=== PATIENT | female | born 2000 | race American Indian/Alaskan Native ===

== ENCOUNTER 2021-12-13 11:45 | Emergency (ER) | payer SELFPAY ==
--- NOTE | 2021-12-13 12:57 | Ultrasound Report ---
EARLY OBSTETRICAL ULTRASOUND INDICATION: vaginal bleeding COMPARISON: None pertinent available TECHNIQUE: Endovaginal FINDINGS: Uterus measures 8.3 x 4.3 x 4.0 cm. Endometrial stripe measures 13 mm. In the body of the u terus what appears to be a small gestational sac is seen with a double wall sign. Slight internal ech oes are noted but no defined pole or yolk sac are seen. Cardiac activity was not detected. By s ac size this would correlate to 5 weeks 1 day which is mildly less than the clinical estimate of 6 we eks 3 days. In the cervical canal mobile debris is seen which presumably represents blood. Right ovary shows a minimally complex 11 mm cyst. Left ovary shows minimal follicular-type cysts. No adnexal masses are seen. No free fluid is noted. IMPRESSION: Abnormal appearing small intrauterine gestational sac without confirmation of viability. I suspect this is a spontaneous in progress. Follow-up is needed. Signer Name: Raza Webber MD Signed: 12/13/2021 12:53 PM Workstation Name: [email or web address]
--- NOTE | 2021-12-13 13:35 | Emergency Department Report ---
Blank Doc - Documentation Documentation: 22-year-old female that presents with abnormal vaginal bleeding. Patient stated she is about 5 to 6 weeks . Still has some pelvic cramping. 1- This is a initial triage assessment/medical screening only. Full assessment and work-up will be completed once the patient is in proper hospital gown, ED bed and in a private room setting. This initial assessment/diagnostic orders/clinical plan/ treatment(s) is/are subject to change based on pt's health status, clinical progression and re-assessment by fellow clinical providers in the ED. Further treatment and workup at subsequent clinical providers discretion. Patient/guardians urged not to elope from ED as their condition may be serious if not clinically assessed and managed. 2-labs 3-UA 4-US The patient was evaluated in the emergency department for symptoms described in the history of present illness. He/she was evaluated in the context of the global COVID-19 pandemic, which necessitated consideration that the patient might be at risk for infection with the virus that causes COVID-19. Institutional protocols and algorithms that pertain to the evaluation of patients at risk for COVID-19 are in a state of rapid change based on information released by regulatory bodies including the CDC and federal and state organizations. These policies and algorithms were followed during the patient's care in the emergency department. Please note that these policies, procedures and recommendations changed on a rapid basis.
[2021-12-13 14:10] LABS: Basophils % (Auto) 0.4 % (0.0-1.8); Hematocrit 38.2 % (30.3-42.9); Hemoglobin 13.1 gm/dl (10.1-14.3); Lymphocytes # (Auto) 1.1 K/mm3 (1.2-5.4); Lymphocytes % (Auto) 22.3 % (13.4-35.0); Mean Corpuscular HGB Conc 34 % (30-34); Mean Corpuscular Volume 96 fl (79-97); Monocytes # (Auto) 0.6 K/mm3 (0.0-0.8); Monocytes % (Auto) 12.2 % (0.0-7.3); Platelet Count 206 K/mm3 (140-440); Red Blood Count 3.98 M/mm3 (3.65-5.03); Red Cell Distribution Width 12.9 % (13.2-15.2)
[2021-12-13 14:22] LABS: INR 1.08 (0.87-1.13)
[2021-12-13 14:23] LABS: Partial Thromboplastin Time 28.3 Sec. (24.2-36.6)
[2021-12-13] MEDS ORDERED: METOCLOPRAMIDE 10 MG/2 ML INJ IV ONE (15:40)
[2021-12-13] MEDS ORDERED: MORPHINE 2 MG/1 ML INJ IV ONE (15:40)
[2021-12-13] MEDS ORDERED: diphenhydrAMINE 50 MG/ML VIAL IV ONE (15:40)
[2021-12-13] MEDS ORDERED: FAMOTIDINE 20 MG/2 ML INJ IV ONE (15:40)
[2021-12-13 19:21] LABS: Bacteria,Urine 1+ /HPF (Negative); Mucus,Urine 2+ /HPF
--- NOTE | 2021-12-13 19:27 | Emergency Department Report ---
ED Female HPI - General Chief complaint: Vaginal Bleeding Stated complaint: POSSIBLE MISCARRIAGE 6 WEEKS Time Seen by Provider: 12/13/21 11:56 Source: patient Mode of arrival: Ambulatory Limitations: No Limitations - History of Present Illness Initial comments: Patient is a A0 21-year-old -[place] female with no past medical history who is approximately 6 weeks gestation presents to the ED with complaint of acute onset persistent suprapubic pain, nausea, vomiting and vaginal bleeding for the last 2 days. Patient states that the pain is constant and persistent and that the bleeding has been persistent as well. Patient denies dizziness, syncope, chest pain or shortness of breath, diarrhea, dysuria, urinary frequency and urgency, fever, chills, low back pain, headache and cough. MD Complaint: vaginal bleeding, pelvic pain -: Sudden (2) Location: suprapubic, other (vaginal) Radiation: non-radiating Severity: severe Severity scale (0 -10): 8 Quality: cramping, sharp Consistency: constant Improves with: none Worsens with: none Are you Now?: Yes (approx 6 weeks gestation) Associated Symptoms: denies other symptoms, vaginal bleeding, abdominal pain. denies: vaginal discharge, nausea/vomiting, fever/chills, headaches, loss of appetite, dysuria, hematuria, rash, seizure, shortness of breath, syncope, weakness - Related Data Sexually active: Yes : 2 Para: 1 A: 0 Previous Rx's Medication Instructions Recorded Last Taken Type Acetaminophen [Tylenol] 500 mg PO Q6HR PRN #40 tablet 12/13/21 Unknown Rx Promethazine [Phenergan] 25 mg PO Q6HR PRN #30 tab 12/13/21 Unknown Rx cephALEXin [Keflex] 500 mg PO Q6HR #40 capsule 12/13/21 Unknown Rx Allergies Allergy/AdvReac Type Severity Reaction Status Date / Time No Known Allergies Allergy Unverified 12/13/21 11:53 ED Review of Systems ROS: Stated complaint: POSSIBLE MISCARRIAGE 6 WEEKS Other details as noted in HPI Constitutional: denies: chills, fever Eyes: denies: eye pain, eye discharge, vision change ENT: denies: ear pain, throat pain Respiratory: denies: cough, shortness of breath, wheezing Cardiovascular: denies: chest pain, palpitations Endocrine: no symptoms reported Gastrointestinal: abdominal pain (Suprapubic pain), nausea, vomiting. denies: diarrhea Genitourinary: abnormal menses. denies: urgency, dysuria, discharge Musculoskeletal: denies: back pain, joint swelling, arthralgia Skin: denies: rash, lesions Neurological: denies: headache, weakness, paresthesias Psychiatric: denies: anxiety, depression Hematological/Lymphatic: denies: easy bleeding, easy bruising ED Past Medical Hx - Social History Smoking Status: Never Smoker Substance Use Type: None - Medications Home Medications: Home Medications Medication Instructions Recorded Confirmed Last Taken Type Acetaminophen [Tylenol] 500 mg PO Q6HR PRN #40 tablet 12/13/21 Unknown Rx Promethazine [Phenergan] 25 mg PO Q6HR PRN #30 tab 12/13/21 Unknown Rx cephALEXin [Keflex] 500 mg PO Q6HR #40 capsule 12/13/21 Unknown Rx ED Physical Exam - General Limitations: No Limitations General appearance: alert, in no apparent distress - Head Head exam: Present: atraumatic, normocephalic, normal inspection - Eye Eye exam: Present: normal appearance, PERRL, EOMI Pupils: Present: normal accommodation - ENT ENT exam: Present: normal exam, normal orophraynx, mucous membranes moist, TM's normal bilaterally, normal external ear exam - Neck Neck exam: Present: normal inspection, full ROM. Absent: tenderness - Respiratory Respiratory exam: Present: normal lung sounds bilaterally. Absent: respiratory distress, wheezes, rales, rhonchi, chest wall tenderness, accessory muscle use, decreased breath sounds, prolonged expiratory - Cardiovascular Cardiovascular Exam: Present: regular rate, normal rhythm, normal heart sounds. Absent: systolic murmur, diastolic murmur, rubs, gallop - GI/Abdominal GI/Abdominal exam: Present: soft, tenderness (Suprapubic pressure and tenderness), normal bowel sounds. Absent: guarding, rebound, hyperactive bowel sounds, hypoactive bowel sounds, organomegaly - Bi-manual exam: Present: other (Pelvic exam deferred at this time) - Extremities Exam Extremities exam: Present: normal inspection, full ROM, normal capillary refill. Absent: tenderness - Back Exam Back exam: Present: normal inspection, full ROM. Absent: tenderness, CVA tenderness (R), CVA tenderness (L), muscle spasm, paraspinal tenderness, vertebral tenderness - Neurological Exam Neurological exam: Present: alert, oriented X3, CN II-XII intact, normal gait, reflexes normal - Psychiatric Psychiatric exam: Present: normal affect, normal mood - Skin Skin exam: Present: warm, dry, intact, normal color. Absent: rash ED Course Vital Signs 12/13/21 11:48 Temperature 98.8 F Pulse Rate 92 H Respiratory 18 Rate Blood Pressure 115/73 [Left] O2 Sat by Pulse 100 Oximetry ED Medical Decision Making - Lab Data Result diagrams: 12/13/21 13:06 - Radiology Data Radiology results: report reviewed, image reviewed [facility] [address] [place] [address] Ultrasound Report Signed Patient: CHRISTINA HUTCHISON MR#: [id number] : 2000 Acct:[id number] Age/Sex: 21 / F ADM Date: 12/13/21 Loc: ED Attending Dr: Ordering Physician: DARVIN SULLIVAN NP Date of Service: 12/13/21 Procedure(s): US OB transvaginal Accession Number(s): [id number] cc: DARVIN SULLIVAN NP EARLY OBSTETRICAL ULTRASOUND INDICATION: vaginal bleeding COMPARISON: None pertinent available TECHNIQUE: Endovaginal FINDINGS: Uterus measures 8.3 x 4.3 x 4.0 cm. Endometrial stripe measures 13 mm. In the body of the uterus what appears to be a small gestational sac is seen with a double wall sign. Slight internal echoes are noted but no defined pole or yolk sac are seen. Cardiac activity was not detected. By sac size this would correlate to 5 weeks 1 day which is mildly less than the clinical estimate of 6 weeks 3 days. In the cervical canal mobile debris is seen which presumably represents blood. Right ovary shows a minimally complex 11 mm cyst. Left ovary shows minimal follicular-type cysts. No adnexal masses are seen. No free fluid is noted. IMPRESSION: Abnormal appearing small intrauterine gestational sac without confirmation of viability. I suspect this is a spontaneous in progress. Follow-up is needed. Signer Name: Raza Webber MD Signed: 12/13/2021 12:53 PM Workstation Name: [id number] Transcribed By: Dictated By: Raza Webber MD Electronically Authenticated By: Raza Webber MD Signed Date/Time: 12/13/21 1253 DD/ 1247 TD/TT: - Medical Decision Making This is a A0 21-year-old -[place] female with no past medical history who is approximately 6 weeks gestation presents to the ED with complaint of acute onset persistent suprapubic pain, nausea, vomiting and vaginal b leeding for the last 2 days. Patient states that the pain is constant and persistent and that the bleeding has been persistent as well. In the ED, patient is alert and oriented x3 and is not in any distress. Patient was treated for pain in the ED and also given antiemetics. Lab test results were reviewed and are all nonactionable except for hCG quant of 185.6. Transvaginal ultrasound showed abnormal appearing small intrauterine gestational sac without confirmation of viability suspicious for a spontaneous in progress. Follow-up is needed. Urinalysis showed significant urinary tract infection. 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 Patient is advised return to the ED immediately if symptoms get worse. - Differential Diagnosis Threatened miscarriage; subchorionic bleed; ovarian cyst; UTI; ectopic preg Critical care attestation.: If time is entered above; I have spent that time in minutes in the direct care of this critically ill patient, excluding procedure time. ED Disposition Clinical Impression: Threatened miscarriage in early , Incomplete miscarriage, Nausea and vomiting in , Abdominal pain during in first trimester, Acute urinary tract infection Disposition: 01 HOME / SELF CARE / HOMELESS Is pt being admited?: No Does the pt Need Aspirin: No Condition: Stable Instructions: Vaginal Bleeding During , First Trimester, Threatened Miscarriage, [id number], Miscarriage, [id number], Nausea and Vomiting, Adult, [id number], Urinary Tract Infection, Adult, [id number], Vaginal Bleeding During , First Trimester, [id number] Additional Instructions: All lab test results were reviewed and are all nonactionable except for hCG quant of 185.6, and urinalysis does show significant urinary tract infection. Transvaginal ultrasound showed abnormal appearing small intrauterine gestational sac without confirmation of viability suspicious for a spontaneous in progress. Therefore maintain at complete pelvic rest with no strenuous or physical activities, take medication as needed for pain, take antibiotic until finished and follow-up with your CHILD NUTRITION MANAGER physician or return to the ED in 48 hours for further evaluation including serial hCG quant test to ascertain the viability of the or to confirm complete miscarriage. Prescriptions: Acetaminophen [Tylenol] 500 mg PO Q6HR PRN #40 tablet PRN Reason: Pain , Severe (7-10) cephALEXin [Keflex] 500 mg PO Q6HR #40 capsule Promethazine [Phenergan] 25 mg PO Q6HR PRN #30 tab PRN Reason: Nausea Referrals: SHOSHANA SIMON MD [Staff Physician] - 3-5 Days Forms: Work/School Release Form(ED) Time of Disposition: 19:55 Print Language: ISRAELI
[2021-12-13 19:33] LABS: Bilirubin,Urine Negative (Negative); Color,Urine Yellow (Yellow)
[2021-12-13 19:34] LABS: Blood,Urine Large (Negative)
[2021-12-13] MEDS ORDERED: LIDOCAINE-MPF (1%) 10 MG/1 ML VIAL 5 ML INFILTRATI ONE (19:50)
[2021-12-13 21:17] VITALS: BP 123/76
== END 2021-12-13 21:17 | disposition home or self-care (01) ==
LOC: ED 11:45
DX: O03.4 Incomplete spontaneous abortion without complication (principal); O21.8 Other vomiting complicating pregnancy; O23.41 Unspecified infection of urinary tract in pregnancy, first trimester; N39.0 Urinary tract infection, site not specified; R10.9 Unspecified abdominal pain; Z3A.01 Less than 8 weeks gestation of pregnancy
CPT/HCPCS: 36415; 76817; 81001; 84702; 85025; 85610; 85730; 86900; 86901; 87086; 96372; 96374; 96375; 99284; J0696; J1200; J2270; J2765; J3490